=== PATIENT | female | born 1935 | race Caucasian/White ===

== ENCOUNTER 2021-07-18 07:47 | Inpatient (IN) | payer MEDICARE, OTHER ==
[~2021-07-18] VITALS: Ht 152.4 cm; Wt 65.0 kg
--- NOTE | 2021-07-18 08:30 | NUR ---
informed chilo tobias that pt is on warafarin and last seen normal last night.
[2021-07-18 08:43] LABS: BASOPHILS % (AUTO) 0.3 % (0-1); EOSINOPHILS # (AUTO) 0.2 X10'3 (0-0.9); EOSINOPHILS % (AUTO) 2.5 % (0-6); HEMATOCRIT 36.8 % (35.0-45.0); HEMOGLOBIN 12.4 g/dl (12.0-16.0); LYMPHOCYTES # (AUTO) 0.7 X10'3 (1.1-4.8); LYMPHOCYTES % (AUTO) 9.8 % (21-51); MEAN CORPUSCULAR HEMOGLOBIN 30.8 PG (27.0-31.0); MEAN CORPUSCULAR HGB CONC 33.6 g/dL (33.0-36.5); MEAN CORPUSCULAR VOLUME 91.4 FL (78-98); MEAN PLATELET VOLUME 8.4 FL (7.4-10.4); MONOCYTES # (AUTO) 0.4 X10'3 (0-0.9); MONOCYTES % (AUTO) 5.5 % (2-12); NEUTROPHILS % (AUTO) 81.9 % (42-75); PLATELET COUNT 202 X10'3 (140-440); RED BLOOD COUNT 4.02 X10'6 (4.20-5.60); RED CELL DISTRIBUTION WIDTH 14.3 % (11.5-14.5); WHITE BLOOD COUNT 7.3 X10'3 (4.5-11.0)
--- NOTE | 2021-07-18 08:50 | NUR ---
back from ct scan.
[2021-07-18 08:54] LABS: PARTIAL THROMBOPLASTIN TIME 33 SECONDS (22-32)
[2021-07-18 08:56] LABS: ALANINE AMINOTRANSFERASE 22 U/L (12-78); ALBUMIN 3.3 G/DL (3.4-5.0); ALBUMIN/GLOBULIN RATIO 0.8 (1.1-1.5); ALKALINE PHOSPHATASE 114 IU/L (46-116); ANION GAP 8 (8-16); ASPARTATE AMINO TRANSFERASE 17 U/L (10-37); BILIRUBIN,TOTAL 0.8 MG/DL (0.1-1.0); BLOOD UREA NITROGEN 25 MG/DL (7-18); BUN/CREATININE RATIO 27.5 (6.6-38.0); CALCIUM 8.1 MG/DL (8.5-10.1); CHLORIDE 105 MMOL/L (99-107); CREATININE 0.91 MG/DL (0.40-0.90); GLUCOSE 132 MG/DL (70-104); POTASSIUM 3.3 MMOL/L (3.5-5.1); SODIUM 143 MMOL/L (135-145); TOTAL PROTEIN 7.5 G/DL (6.4-8.2); eGFR 59 ML/MIN
--- NOTE | 2021-07-18 09:06 | NUR ---
the fiction and nonfiction prose writer was taking to the pt daughter in law and she was saying she do not know whether pt is having seizure or stroke and while she was providing this information to me i heard pt screaming looked from window saw swetha rn running to pt room and stated that pt is having seizure episode ,pt hr went up to 140-150's and i disconnected the phone ran to md for ativian order .pulled 2 mg ativian from [facility].
[2021-07-18] MEDS ORDERED: LORazepam 2 mg/ml vial IV ONE (09:10)
[2021-07-18] MEDS ORDERED: levetiracetam inj 1,000 MG in normal saline 100ml IV soln 90 ML IV STA (09:15)
--- NOTE | 2021-07-18 09:20 | NUR ---
CALLED PHARMACY FOR JOYCE .
--- NOTE | 2021-07-18 09:27 | NUR ---
pt is stiff with closed fist ,posturing ,pa jatinder notified.pt still tachycardiac hr in 140's with a fib.
--- NOTE | 2021-07-18 09:28 | NUR ---
given ativian 1 mg again 2nd dose after getting verbal orders from chilo tobias.
--- NOTE | 2021-07-18 09:38 | NUR ---
provider has ordered cta of head ,pt hr 117 spo2 98 on 5 l of o2,rr 18 bp 136/105.
[2021-07-18] MEDS ORDERED: iohexol 350MG/ML 100ml bottle IV ONE (09:43)
[2021-07-18] MEDS ORDERED: LORazepam 2 mg/ml vial IV PRN ×2 (09:45→13:30)
--- NOTE | 2021-07-18 09:50 | NUR ---
took pt to ct scan administered 2 mg iv ativian as pt was not holding still for cta .
[2021-07-18 11:32] LABS: % IRON SATURATION 31 % (11-46); IRON 57 UG/DL (49-151); TOTAL IRON BINDING CAPACITY 182 UG/DL (259-388)
[2021-07-18] MEDS ORDERED: magnesium hydroxide 30ml (MOM) UD suspension PO PRN (12:35)
[2021-07-18] MEDS ORDERED: PERFLUTREN PROTEIN-A MICROSPHR (Optison) 0.22 MG/ML 3ML VIAL IV ONE (12:35)
[2021-07-18] MEDS ORDERED: potassium Cl 20 mEq SR tablet PO PRN ×2 (12:35)
[2021-07-18] MEDS ORDERED: magnesium 4gm in 100ml NS 100 ML IV PRN (12:35)
[2021-07-18] MEDS ORDERED: mag hydrox/Alum hydrox/simeth 30ml oral suspension PO PRN (12:35)
[2021-07-18] MEDS ORDERED: magnesium 2GM in 50ml NS 50 ML IV PRN (12:35)
[2021-07-18] MEDS ORDERED: acetaminophen 325mg tablet PO PRN (12:35)
[2021-07-18] MEDS ORDERED: potassium Cl 40MEQ/1/2NS 520ml 520 ML IV PRN ×2 (12:35)
[2021-07-18] MEDS ORDERED: morphine 2 MG/ML inj. syringe IV PRN ×2 (12:35)
[2021-07-18] MEDS ORDERED: ondansetron/PF 4mg/2ml inj IV PRN (12:35)
[2021-07-18] MEDS ORDERED: aspirin 325mg tablet, delayed-release (Ecotrin) PO ONE (12:35)
[2021-07-18] MEDS ORDERED: UNABLE TO OBTAIN PO (13:03)
[2021-07-18] MEDS ORDERED: PHEN100C12 PO (14:48)
[2021-07-18] MEDS ORDERED: WARF2.5T82 PO ×2 (15:03)
[2021-07-18] MEDS ORDERED: enoxaparin 40mg/0.4ml syringe SQ SCH (20:00)
[2021-07-18] MEDS: K and/or MAG REPLACEMENT MC SCH (20:02)
[2021-07-18] MEDS: docusate sod 100mg capsule PO SCH (20:11)
[2021-07-18] MEDS ORDERED: warfarin 1mg tablet PO ONE (21:00)
--- NOTE | 2021-07-18 21:47 | NUR ---
call dr lovett for Cv of trop, no answer, paged
[2021-07-19 01:43] LABS: BASOPHILS % (AUTO) 0.6 % (0-1); EOSINOPHILS # (AUTO) 0.1 X10'3 (0-0.9); EOSINOPHILS % (AUTO) 1.8 % (0-6); HEMATOCRIT 36.6 % (35.0-45.0); HEMOGLOBIN 12.5 g/dl (12.0-16.0); LYMPHOCYTES # (AUTO) 0.9 X10'3 (1.1-4.8); LYMPHOCYTES % (AUTO) 11.9 % (21-51); MEAN CORPUSCULAR HEMOGLOBIN 30.8 PG (27.0-31.0); MEAN CORPUSCULAR HGB CONC 34.2 g/dL (33.0-36.5); MEAN PLATELET VOLUME 8.7 FL (7.4-10.4); MONOCYTES # (AUTO) 0.5 X10'3 (0-0.9); MONOCYTES % (AUTO) 6.4 % (2-12); NEUTROPHILS % (AUTO) 79.3 % (42-75); PLATELET COUNT 192 X10'3 (140-440); RED BLOOD COUNT 4.07 X10'6 (4.20-5.60); RED CELL DISTRIBUTION WIDTH 14.1 % (11.5-14.5); WHITE BLOOD COUNT 7.6 X10'3 (4.5-11.0)
[2021-07-19 02:02] LABS: ALANINE AMINOTRANSFERASE 21 U/L (12-78); ALBUMIN 3.3 G/DL (3.4-5.0); ALBUMIN/GLOBULIN RATIO 0.8 (1.1-1.5); ALKALINE PHOSPHATASE 125 IU/L (46-116); ANION GAP 6 (8-16); ASPARTATE AMINO TRANSFERASE 22 U/L (10-37); BILIRUBIN,TOTAL 1.3 MG/DL (0.1-1.0); BLOOD UREA NITROGEN 19 MG/DL (7-18); BUN/CREATININE RATIO 20.9 (6.6-38.0); CALCIUM 8.5 MG/DL (8.5-10.1); CHLORIDE 108 MMOL/L (99-107); CHOL/HDL RATIO 2.9 (0.00-4.99); CHOLESTEROL 161 MG/DL (0-200); CREATININE 0.91 MG/DL (0.40-0.90); GLUCOSE 91 MG/DL (70-104); HDL CHOLESTEROL 56 MG/DL (35-60); LDL CHOLESTEROL 93 MG/DL (50-100); MAGNESIUM 2.6 MG/DL (1.5-2.4); POTASSIUM 3.7 MMOL/L (3.5-5.1); SODIUM 145 MMOL/L (135-145); TOTAL CARBON DIOXIDE 31.2 MMOL/L (24-32); TOTAL PROTEIN 7.5 G/DL (6.4-8.2); TRIGLYCERIDES 86 MG/DL (20-135); eGFR 59 ML/MIN
[2021-07-19] MEDS: K and/or MAG REPLACEMENT MC SCH (07:09)
[2021-07-19] MEDS ORDERED: phenytoin sod ER 100mg capsule PO SCH ×2 (08:00→21:00)
[2021-07-19] MEDS: docusate sod 100mg capsule PO SCH (10:18)
[2021-07-19 11:00] VITALS: BP 146/78
--- NOTE | 2021-07-19 12:56 | NUR ---
PAGER ID: [phone] MESSAGE: Re: Alina Quintanilla. Room: [facility]. Pt complaining of chronic pain. She takes Berlin at home. Can I put order in for Berlin 5 PRN q4hrs? -[facility] #[id number] -Dr. Phillips paged concerning Pt's pain
[2021-07-19] MEDS ORDERED: HYDROcodone/acetaminophen 5mg/325mg tablet PO PRN (13:05)
[2021-07-19 15:00] VITALS: BP 121/65
[2021-07-19] MEDS ORDERED: PHEN100C12 PO ×2 (15:21)
[2021-07-19] MEDS ORDERED: HYDR-3965 PO ×2 (15:21)
[2021-07-19] MEDS ORDERED: ZOF4I IV (15:24)
[2021-07-19] MEDS ORDERED: HYDR-3964 PO (15:28)
[2021-07-19] MEDS ORDERED: PHEN100C4 PO (15:28)
--- NOTE | 2021-07-19 17:45 | NUR ---
Pt DC'd home with with son and daughter. Pt alert and oriented and vitals WNL upon DC. Per Dr. Phillips; Pt is stable for DC. IC removed, canula intact. Tele-box removed and returned to tele-tech. DC paperwork printed out and gone over with Pt, son and daughter. Allowed them to ask questions concerning DC and then answered them. New prescriptions called into [facility] pharmacy on [address]. Pt, son and daughter stated that they will get a PCP and then get referells for used car sales manager, neurologist and vascular surgeon. Pt's belongings gathered and sent with Pt. Pt's wheelchaired down to [facility] where Pt left in private vehicle with son and daughter.
[2021-07-19] MEDS ORDERED: warfarin 5mg tablet PO ONE (21:00)
== END 2021-07-19 17:45 | disposition home or self-care (01) | DRG 100 ==
LOC: ER 07:48 → ED HOLD 12:44 → PCU 3S 07-19 08:50
PROVIDERS: ADMIT Family Medicine; ATTEND Family Medicine
PROC: B3251ZZ Computerized Tomography (CT Scan) of Bilateral Common Carotid Arteries using Low Osmolar Contrast (ICD-10-PCS; 2021-07-18)
PROC: B32G1ZZ Computerized Tomography (CT Scan) of Bilateral Vertebral Arteries using Low Osmolar Contrast (ICD-10-PCS; 2021-07-18)
PROC: B32R1ZZ Computerized Tomography (CT Scan) of Intracranial Arteries using Low Osmolar Contrast (ICD-10-PCS; 2021-07-18)
PROC: B3281ZZ Computerized Tomography (CT Scan) of Bilateral Internal Carotid Arteries using Low Osmolar Contrast (ICD-10-PCS; 2021-07-18)
PROC: 4A10X4Z Monitoring of Central Nervous Electrical Activity, External Approach (ICD-10-PCS; principal; 2021-07-19)
DX: G40.802 Other epilepsy, not intractable, without status epilepticus (principal); G93.41 Metabolic encephalopathy; I21.A1 Myocardial infarction type 2; I65.21 Occlusion and stenosis of right carotid artery; E78.5 Hyperlipidemia, unspecified; I10 Essential (primary) hypertension; E87.6 Hypokalemia; I77.1 Stricture of artery; G89.29 Other chronic pain; I08.1 Rheumatic disorders of both mitral and tricuspid valves; N28.9 Disorder of kidney and ureter, unspecified; I48.91 Unspecified atrial fibrillation; M79.606 Pain in leg, unspecified; R94.01 Abnormal electroencephalogram [EEG]; Z86.73 Personal history of transient ischemic attack (TIA), and cerebral infarction without residual deficits; Z79.899 Other long term (current) drug therapy; Z79.01 Long term (current) use of anticoagulants
CPT/HCPCS: 36415; 70450; 70496; 70498; 70551; 71045; 80053; 80061; 82948; 83540; 83550; 83735; 84484; 85025; 85610; 85730; 87081; 92508; 92616; 93005; 93306; 95816; 96365; 96366; 96375; 96376; 99285; G0378; J1953; J2060; Q9967

== ENCOUNTER 2021-07-27 22:11 | Emergency (ER) | payer MEDICARE ==
[~2021-07-27] VITALS: Ht 160 cm; Wt 59.1 kg
[~2021-07-27 22:11] MED LIST: HYDR-3964 PO; PHEN100C4 PO; WARF2.5T82 PO; ZOF4I IV
[2021-07-28] MEDS ORDERED: normal saline 1000ML IV soln IVB ONE
[2021-07-28 00:41] LABS: HEMOGLOBIN 12.5 g/dl (12.0-16.0); WHITE BLOOD COUNT 7.3 X10'3 (4.5-11.0)
[2021-07-28 00:42] LABS: BASOPHILS % (AUTO) 0.3 % (0-1); EOSINOPHILS # (AUTO) 0.2 X10'3 (0-0.9); EOSINOPHILS % (AUTO) 3.1 % (0-6); HEMATOCRIT 36.2 % (35.0-45.0); LYMPHOCYTES # (AUTO) 0.8 X10'3 (1.1-4.8); MEAN CORPUSCULAR HEMOGLOBIN 32.5 PG (27.0-31.0); MEAN CORPUSCULAR HGB CONC 34.6 g/dL (33.0-36.5); MEAN CORPUSCULAR VOLUME 93.9 FL (78-98); MEAN PLATELET VOLUME 8.1 FL (7.4-10.4); MONOCYTES # (AUTO) 0.5 X10'3 (0-0.9); MONOCYTES % (AUTO) 6.7 % (2-12); NEUTROPHILS # (AUTO) 5.7 X10'3 (1.8-7.7); NEUTROPHILS % (AUTO) 78.9 % (42-75); PLATELET COUNT 258 X10'3 (140-440); RED BLOOD COUNT 3.86 X10'6 (4.20-5.60); RED CELL DISTRIBUTION WIDTH 14.4 % (11.5-14.5)
[2021-07-28] MEDS ORDERED: HYDROcodone/acetaminophen 5mg/325mg tablet PO ONE (00:45)
[2021-07-28 01:04] LABS: CLARITY,URINE SLIGHTLY CLOUDY (Clear); COLOR,URINE YELLOW (Yellow); GLUCOSE, URINE NEGATIVE (Neg); KETONES,URINE NEGATIVE (Neg); PROTEIN,URINE NEGATIVE (Neg); UA COLLECTION TYPE CLN CATCH MIDSTREAM
[2021-07-28 01:04] LABS: ALANINE AMINOTRANSFERASE 23 U/L (12-78); ALBUMIN 3.7 G/DL (3.4-5.0); ALBUMIN/GLOBULIN RATIO 0.9 (1.1-1.5); ALKALINE PHOSPHATASE 141 IU/L (46-116); ANION GAP 8 (8-16); ASPARTATE AMINO TRANSFERASE 19 U/L (10-37); BILIRUBIN,TOTAL 0.3 MG/DL (0.1-1.0); BLOOD UREA NITROGEN 23 MG/DL (7-18); BUN/CREATININE RATIO 24.2 (6.6-38.0); CALCIUM 8.1 MG/DL (8.5-10.1); CHLORIDE 107 MMOL/L (99-107); CREATININE 0.95 MG/DL (0.40-0.90); GLUCOSE 103 MG/DL (70-104); POTASSIUM 3.9 MMOL/L (3.5-5.1); SODIUM 144 MMOL/L (135-145); TOTAL CARBON DIOXIDE 29.3 MMOL/L (24-32); eGFR 56 ML/MIN
[2021-07-28 01:05] LABS: LEUKOCYTE ESTERASE ,URINE MODERATE (Neg); NITRITES, URINE NEGATIVE (Neg); OCCULT BLOOD,URINE TRACE-LYSED (Neg); UROBILINOGEN,URINE 0.2 E.U/dL (0.2-1.0)
[2021-07-28 01:07] LABS: PHENYTOIN (DILANTIN) 16.6 UG/ML (10.0-20.0)
[2021-07-28 01:12] LABS: WBC,URINE 30-50 /HPF (0-4)
[2021-07-28 01:13] LABS: BACTERIA,URINE 4+ /HPF (Neg); MUCUS STRANDS NONE SEEN /LPF (Neg); RBC,URINE 0-2 /HPF (0-2); SQUAMOUS EPITHELIAL CELL,UR FEW /LPF (FEW)
[2021-07-28 01:16] VITALS: BP 195/104
[2021-07-28] MEDS ORDERED: CefTRIAXone/D5W-Rocephin 1gm 50 ML IV ONE (01:50)
[2021-07-28] MEDS ORDERED: CEPH-585 PO ×3 (04:29→04:56)
== END 2021-07-28 05:40 | disposition home or self-care (01) ==
LOC: ER 22:12
DX: N39.0 Urinary tract infection, site not specified (principal); R53.1 Weakness; R47.81 Slurred speech; R53.83 Other fatigue; I48.91 Unspecified atrial fibrillation; I12.9 Hypertensive chronic kidney disease with stage 1 through stage 4 chronic kidney disease, or unspecified chronic kidney disease; N18.9 Chronic kidney disease, unspecified; Z86.73 Personal history of transient ischemic attack (TIA), and cerebral infarction without residual deficits; Z86.69 Personal history of other diseases of the nervous system and sense organs; Z88.5 Allergy status to narcotic agent; Z79.2 Long term (current) use of antibiotics; Z79.899 Other long term (current) drug therapy
CPT/HCPCS: 36415; 71045; 80053; 80185; 81001; 84484; 85025; 87077; 87088; 87186; 93005; 96365; 99285; J0696; J7030

== ENCOUNTER 2022-02-22 09:00 | Emergency (ER) | payer MEDICARE ==
[~2022-02-22] VITALS: Ht 152.4 cm; Wt 61.4 kg
[~2022-02-22 09:00] MED LIST changes: +CEPH-585 PO
[2022-02-22] MEDS ORDERED: HYDROcodone/acetaminophen 10/325mg tab PO ONE (09:20)
[2022-02-22 10:53] LABS: BASOPHILS % (AUTO) 0.6 % (0-1); EOSINOPHILS # (AUTO) 0.3 X10'3 (0-0.9); EOSINOPHILS % (AUTO) 5.3 % (0-6); HEMATOCRIT 33.5 % (35.0-45.0); HEMOGLOBIN 10.8 g/dl (12.0-16.0); LYMPHOCYTES # (AUTO) 0.7 X10'3 (1.1-4.8); LYMPHOCYTES % (AUTO) 12.2 % (21-51); MEAN CORPUSCULAR HEMOGLOBIN 29.2 PG (27.0-31.0); MEAN CORPUSCULAR HGB CONC 32.1 g/dL (33.0-36.5); MEAN CORPUSCULAR VOLUME 91.1 FL (78-98); MEAN PLATELET VOLUME 8.5 FL (7.4-10.4); MONOCYTES # (AUTO) 0.3 X10'3 (0-0.9); MONOCYTES % (AUTO) 5.5 % (2-12); NEUTROPHILS # (AUTO) 4.2 X10'3 (1.8-7.7); NEUTROPHILS % (AUTO) 76.4 % (42-75); PLATELET COUNT 217 X10'3 (140-440); RED BLOOD COUNT 3.68 X10'6 (4.20-5.60); RED CELL DISTRIBUTION WIDTH 17.4 % (11.5-14.5); WHITE BLOOD COUNT 5.5 X10'3 (4.5-11.0)
[2022-02-22 11:01] LABS: ALANINE AMINOTRANSFERASE 12 U/L (12-78); ALBUMIN 3.2 G/DL (3.4-5.0); ALBUMIN/GLOBULIN RATIO 0.7 (1.1-1.5); ALKALINE PHOSPHATASE 120 IU/L (46-116); ANION GAP 6 (8-16); ASPARTATE AMINO TRANSFERASE 21 U/L (10-37); BILIRUBIN,TOTAL 0.7 MG/DL (0.1-1.0); BLOOD UREA NITROGEN 26 MG/DL (7-18); BUN/CREATININE RATIO 19.7 (6.6-38.0); CALCIUM 8.8 MG/DL (8.5-10.1); CHLORIDE 106 MMOL/L (99-107); CREATININE 1.32 MG/DL (0.40-0.90); GLUCOSE 122 MG/DL (70-104); POTASSIUM 3.8 MMOL/L (3.5-5.1); SODIUM 143 MMOL/L (135-145); TOTAL CARBON DIOXIDE 31.1 MMOL/L (24-32); TOTAL PROTEIN 7.6 G/DL (6.4-8.2); eGFR 38 ML/MIN
[2022-02-22 11:17] VITALS: BP 168/71
[2022-02-22] MEDS ORDERED: GABA300C PO (11:55)
[2022-02-22] MEDS ORDERED: CEPH-585 PO (11:55)
[2022-02-22 12:53] LABS: CLARITY,URINE SLIGHTLY CLOUDY (Clear); COLOR,URINE YELLOW (Yellow); GLUCOSE, URINE NEGATIVE (Neg); KETONES,URINE NEGATIVE (Neg); LEUKOCYTE ESTERASE ,URINE TRACE (Neg); NITRITES, URINE NEGATIVE (Neg); OCCULT BLOOD,URINE NEGATIVE (Neg); PROTEIN,URINE NEGATIVE (Neg); UA COLLECTION TYPE STRAIGHT CATH
[2022-02-22 12:58] LABS: SQUAMOUS EPITHELIAL CELL,UR FEW /LPF (FEW)
[2022-02-22 12:59] LABS: BACTERIA,URINE 3+ /HPF (Neg)
[2022-02-22 13:00] LABS: RBC,URINE NONE SEEN /HPF (0-2); WBC CLUMPS,URINE MODERATE /HPF (NEGATIVE)
[2022-02-22 13:01] LABS: HYALINE CASTS 0-3 /LPF (NEGATIVE)
== END 2022-02-22 14:04 | disposition home or self-care (01) ==
LOC: ER 09:01
DX: K40.90 Unilateral inguinal hernia, without obstruction or gangrene, not specified as recurrent (principal); R10.32 Left lower quadrant pain; L02.416 Cutaneous abscess of left lower limb; N39.0 Urinary tract infection, site not specified; I12.9 Hypertensive chronic kidney disease with stage 1 through stage 4 chronic kidney disease, or unspecified chronic kidney disease; N18.32 Chronic kidney disease, stage 3b; I48.91 Unspecified atrial fibrillation; Z86.73 Personal history of transient ischemic attack (TIA), and cerebral infarction without residual deficits; Z88.8 Allergy status to other drugs, medicaments and biological substances; Z79.01 Long term (current) use of anticoagulants; Z79.899 Other long term (current) drug therapy; Z79.2 Long term (current) use of antibiotics; W19.XXXA Unspecified fall, initial encounter; Y93.89 Activity, other specified; Y92.89 Other specified places as the place of occurrence of the external cause; Y99.8 Other external cause status
CPT/HCPCS: 36415; 70450; 72100; 72131; 72170; 72192; 80053; 81001; 85025; 85610; 87077; 87088; 87186; 93005; 99285; A4353

== ENCOUNTER 2022-03-12 15:31 | Inpatient (IN) | payer MEDICARE ==
[~2022-03-12] VITALS: Ht 157.5 cm; Wt 60.0 kg
[~2022-03-12 15:31] MED LIST changes: +GABA300C PO
--- NOTE | 2022-03-12 15:42 | NUR ---
TACHO Amaral (FAMILY FRIEND) [phone]
[2022-03-12 16:09] LABS: BASOPHILS % (AUTO) 0.6 % (0-1); EOSINOPHILS # (AUTO) 0.4 X10'3 (0-0.9); EOSINOPHILS % (AUTO) 9.3 % (0-6); HEMATOCRIT 28.8 % (35.0-45.0); HEMOGLOBIN 9.3 g/dl (12.0-16.0); LYMPHOCYTES # (AUTO) 0.7 X10'3 (1.1-4.8); LYMPHOCYTES % (AUTO) 15.5 % (21-51); MEAN CORPUSCULAR HEMOGLOBIN 29.7 PG (27.0-31.0); MEAN CORPUSCULAR HGB CONC 32.4 g/dL (33.0-36.5); MEAN CORPUSCULAR VOLUME 91.7 FL (78-98); MEAN PLATELET VOLUME 7.4 FL (7.4-10.4); MONOCYTES # (AUTO) 0.4 X10'3 (0-0.9); MONOCYTES % (AUTO) 9.6 % (2-12); NEUTROPHILS # (AUTO) 2.9 X10'3 (1.8-7.7); PLATELET COUNT 264 X10'3 (140-440); RED BLOOD COUNT 3.15 X10'6 (4.20-5.60); RED CELL DISTRIBUTION WIDTH 20.2 % (11.5-14.5); WHITE BLOOD COUNT 4.5 X10'3 (4.5-11.0)
[2022-03-12 16:19] LABS: ALANINE AMINOTRANSFERASE 15 U/L (12-78); ALBUMIN 3.1 G/DL (3.4-5.0); ALBUMIN/GLOBULIN RATIO 0.7 (1.1-1.5); ALKALINE PHOSPHATASE 112 IU/L (46-116); ANION GAP 6 (8-16); ASPARTATE AMINO TRANSFERASE 24 U/L (10-37); BILIRUBIN,TOTAL 0.3 MG/DL (0.1-1.0); BLOOD UREA NITROGEN 45 MG/DL (7-18); CALCIUM 8.3 MG/DL (8.5-10.1); CHLORIDE 105 MMOL/L (99-107); GLUCOSE 105 MG/DL (70-104); POTASSIUM 4.7 MMOL/L (3.5-5.1); SODIUM 140 MMOL/L (135-145); TOTAL CARBON DIOXIDE 29.2 MMOL/L (24-32); TOTAL PROTEIN 7.3 G/DL (6.4-8.2); eGFR 18 ML/MIN
[2022-03-12 16:22] LABS: MAGNESIUM 2.6 MG/DL (1.5-2.4)
--- NOTE | 2022-03-12 17:02 | NUR ---
WERNER TORIBIO (SON): [phone] 2ND: [phone]
[2022-03-12 17:14] LABS: CLARITY,URINE CLEAR (Clear); COLOR,URINE YELLOW (Yellow); GLUCOSE, URINE NEGATIVE (Neg); KETONES,URINE NEGATIVE (Neg); LEUKOCYTE ESTERASE ,URINE NEGATIVE (Neg); NITRITES, URINE NEGATIVE (Neg); OCCULT BLOOD,URINE NEGATIVE (Neg); PH,URINE 5.5 (4.8-8.0); PROTEIN,URINE NEGATIVE (Neg); UROBILINOGEN,URINE 0.2 E.U/dL (0.2-1.0)
[2022-03-12 17:15] LABS: UA COLLECTION TYPE STRAIGHT CATH
[2022-03-12] MEDS ORDERED: normal saline 1000ML IV soln IVB ONE (17:35)
[2022-03-12 18:15] LABS: ANISOCYTOSIS 3+; ELLIPTOCYTES 1+; PLATELET ESTIMATE NORMAL; POIKILOCYTOSIS 1+
[2022-03-12] MEDS ORDERED: piperacillin/tazo 3.375gm/50ml 50 ML IV ONE (18:55)
[2022-03-12] MEDS ORDERED: HYDROcodone/acetaminophen 10/325mg tab PO ONE (19:00)
[2022-03-12] MEDS ORDERED: ipratropium/albuterol 3ml nebule NEB ONE (19:20)
[2022-03-12] MEDS ORDERED: methylPREDNISolone sod succ 125mg/2ml vial IV ONE (19:20)
[2022-03-12] MEDS ORDERED: ondansetron/PF 4mg/2ml inj IV PRN (22:10)
[2022-03-12] MEDS ORDERED: magnesium hydroxide 30ml (MOM) UD suspension PO PRN (22:10)
[2022-03-12] MEDS ORDERED: acetaminophen 325mg tablet PO PRN ×2 (22:10)
[2022-03-12] MEDS ORDERED: diphenhydrAMINE 50 mg/ml inj IV PRN (22:10)
[2022-03-12] MEDS ORDERED: ondansetron 4mg rapidly disintigrating tab PO PRN (22:10)
[2022-03-12] MEDS ORDERED: acetaminophen 650mg rectal suppository RC PRN (22:10)
[2022-03-12] MEDS ORDERED: morphine 2 MG/ML inj. syringe IV PRN (22:10)
[2022-03-12] MEDS ORDERED: mag hydrox/Alum hydrox/simeth 30ml oral suspension PO PRN (22:10)
[2022-03-12] MEDS ORDERED: bisacodyl 10mg suppository rectal RC PRN (22:10)
[2022-03-12] MEDS ORDERED: diphenhydrAMINE 25mg capsule PO PRN (22:10)
[2022-03-12] MEDS ORDERED: metoclopramide 5 mg/ml inj IV PRN (22:10)
[2022-03-12] MEDS ORDERED: ipratropium/albuterol 3ml nebule NEB PRN (22:15)
[2022-03-12 22:28] LABS: HEMOGLOBIN A1C 6.4 % (4.5-6.2)
[2022-03-12 23:02] LABS: MAGNESIUM 2.8 MG/DL (1.5-2.4); PHOSPHORUS 5.1 MG/DL (2.3-4.5)
[2022-03-12] MEDS: normal saline 1000ml 1,000 ML IV SCH (23:02)
[2022-03-12 23:14] LABS: PHENYTOIN (DILANTIN) < 0.5 UG/ML (10.0-20.0)
[2022-03-13] MEDS: HYDROchlorothiazide 25mg tablet PO SCH ×2 (00:39→08:34)
[2022-03-13] MEDS: morphine 2 MG/ML inj. syringe IV PRN ×3 (02:48→22:39)
[2022-03-13] MEDS: HYDROcodone/acetaminophen 5mg/325mg tablet PO PRN ×3 (05:08→20:38)
[2022-03-13 07:49] LABS: BASOPHILS % (AUTO) 0.1 % (0-1); EOSINOPHILS % (AUTO) 0.1 % (0-6); HEMATOCRIT 27.9 % (35.0-45.0); HEMOGLOBIN 9.2 g/dl (12.0-16.0); LYMPHOCYTES # (AUTO) 0.3 X10'3 (1.1-4.8); MEAN CORPUSCULAR HEMOGLOBIN 29.7 PG (27.0-31.0); MEAN CORPUSCULAR HGB CONC 32.9 g/dL (33.0-36.5); MEAN CORPUSCULAR VOLUME 90.2 FL (78-98); MEAN PLATELET VOLUME 7.5 FL (7.4-10.4); MONOCYTES % (AUTO) 1.1 % (2-12); NEUTROPHILS # (AUTO) 3.1 X10'3 (1.8-7.7); NEUTROPHILS % (AUTO) 89.7 % (42-75); PLATELET COUNT 240 X10'3 (140-440); RED BLOOD COUNT 3.09 X10'6 (4.20-5.60); RED CELL DISTRIBUTION WIDTH 19.9 % (11.5-14.5); WHITE BLOOD COUNT 3.4 X10'3 (4.5-11.0)
[2022-03-13] MEDS: docusate sod 100mg capsule PO SCH ×2 (08:00→20:36)
[2022-03-13 08:08] LABS: ALANINE AMINOTRANSFERASE 20 U/L (12-78); ALBUMIN 3.1 G/DL (3.4-5.0); ALBUMIN/GLOBULIN RATIO 0.7 (1.1-1.5); ALKALINE PHOSPHATASE 117 IU/L (46-116); ANION GAP 7 (8-16); ASPARTATE AMINO TRANSFERASE 24 U/L (10-37); BILIRUBIN,TOTAL 0.4 MG/DL (0.1-1.0); BLOOD UREA NITROGEN 41 MG/DL (7-18); BUN/CREATININE RATIO 20.6 (6.6-38.0); CALCIUM 8.4 MG/DL (8.5-10.1); CHLORIDE 107 MMOL/L (99-107); CHOL/HDL RATIO 2.9 (0.00-4.99); CHOLESTEROL 99 MG/DL (0-200); CREATININE 1.99 MG/DL (0.40-0.90); GLUCOSE 170 MG/DL (70-104); HDL CHOLESTEROL 34 MG/DL (35-60); LDL CHOLESTEROL 50 MG/DL (50-100); POTASSIUM 4.7 MMOL/L (3.5-5.1); SODIUM 139 MMOL/L (135-145); TOTAL CARBON DIOXIDE 24.9 MMOL/L (24-32); TOTAL PROTEIN 7.4 G/DL (6.4-8.2); TRIGLYCERIDES 60 MG/DL (20-135); eGFR 24 ML/MIN
[2022-03-13] MEDS: pantoprazole 40mg Tablet.DR PO SCH (08:34)
[2022-03-13] MEDS: furosemide 10 MG/1 ML 10ml inj IV SCH ×2 (08:35→20:46)
[2022-03-13] MEDS: methylPREDNISolone sod succ 125mg/2ml vial IV SCH ×2 (08:36→20:46)
--- NOTE | 2022-03-13 11:17 | NUR ---
pt up to bsc with moderate assistance. small bm noted.
--- NOTE | 2022-03-13 11:59 | NUR ---
dr. vidal at bedside.
--- NOTE | 2022-03-13 12:17 | NUR ---
lunch tray provided.
[2022-03-13] MEDS ORDERED: LORazepam 2 mg/ml vial IV PRN (13:20)
--- NOTE | 2022-03-13 16:39 | NUR ---
ADULT BRIEF CHANGED, HYGIENE PROVIDED WITH LINEN CHANGE AND PURE WICK PLACED FOR PATIENT CONVENIENCE AND COMFORT. DOOR TO DOOR LEAD GENERATION AT BEDSIDE.
[2022-03-13] MEDS: LORazepam 0.5 MG tablet PO PRN (20:38)
[2022-03-13 22:00] VITALS: BP 167/93
[2022-03-14] VITALS (8 sets, daily range): BP systolic 119–163; BP diastolic 67–87
[2022-03-14 06:10] LABS: BASOPHILS % (AUTO) 0 % (0-1); EOSINOPHILS % (AUTO) 0 % (0-6); HEMATOCRIT 27.3 % (35.0-45.0); HEMOGLOBIN 9.3 g/dl (12.0-16.0); LYMPHOCYTES # (AUTO) 0.3 X10'3 (1.1-4.8); LYMPHOCYTES % (AUTO) 4.2 % (21-51); MEAN CORPUSCULAR HEMOGLOBIN 31.5 PG (27.0-31.0); MEAN CORPUSCULAR HGB CONC 33.9 g/dL (33.0-36.5); MEAN CORPUSCULAR VOLUME 92.9 FL (78-98); MEAN PLATELET VOLUME 7.3 FL (7.4-10.4); MONOCYTES # (AUTO) 0.2 X10'3 (0-0.9); MONOCYTES % (AUTO) 2.3 % (2-12); NEUTROPHILS % (AUTO) 93.5 % (42-75); PLATELET COUNT 229 X10'3 (140-440); RED BLOOD COUNT 2.94 X10'6 (4.20-5.60); RED CELL DISTRIBUTION WIDTH 20.4 % (11.5-14.5); WHITE BLOOD COUNT 7.5 X10'3 (4.5-11.0)
[2022-03-14 06:18] LABS: ALANINE AMINOTRANSFERASE 24 U/L (12-78); ALBUMIN 3.6 G/DL (3.4-5.0); ALBUMIN/GLOBULIN RATIO 0.8 (1.1-1.5); ALKALINE PHOSPHATASE 116 IU/L (46-116); ANION GAP 6 (8-16); ASPARTATE AMINO TRANSFERASE 23 U/L (10-37); BILIRUBIN,TOTAL 0.5 MG/DL (0.1-1.0); BLOOD UREA NITROGEN 42 MG/DL (7-18); BUN/CREATININE RATIO 23.1 (6.6-38.0); CALCIUM 8.6 MG/DL (8.5-10.1); CHLORIDE 104 MMOL/L (99-107); CREATININE 1.82 MG/DL (0.40-0.90); GLUCOSE 144 MG/DL (70-104); POTASSIUM 4.6 MMOL/L (3.5-5.1); SODIUM 140 MMOL/L (135-145); TOTAL CARBON DIOXIDE 29.6 MMOL/L (24-32); TOTAL PROTEIN 7.9 G/DL (6.4-8.2); eGFR 26 ML/MIN
[2022-03-14] MEDS: morphine 2 MG/ML inj. syringe IV PRN ×4 (07:07→23:39)
[2022-03-14] MEDS: furosemide 10 MG/1 ML 10ml inj IV SCH ×2 (07:08→19:45)
[2022-03-14] MEDS: methylPREDNISolone sod succ 125mg/2ml vial IV SCH ×2 (07:10→19:45)
[2022-03-14] MEDS: HYDROchlorothiazide 25mg tablet PO SCH (07:11)
[2022-03-14] MEDS: pantoprazole 40mg Tablet.DR PO SCH (07:11)
[2022-03-14] MEDS: docusate sod 100mg capsule PO SCH ×2 (07:11→19:45)
[2022-03-14] MEDS: phenytoin sod ER 100mg capsule PO SCH (07:11)
[2022-03-14] MEDS ORDERED: levoFLOXACIN-Levaquin 750MG/D5 150 ML IV SCH (08:00)
[2022-03-14] MEDS: HYDROcodone/acetaminophen 5mg/325mg tablet PO PRN ×3 (08:40→19:48)
[2022-03-14] MEDS ORDERED: phytonadione inj. 5 MG in normal saline 100ml IV soln 100 ML IV ONE (09:40)
[2022-03-14] MEDS: LORazepam 0.5 MG tablet PO PRN (10:38)
--- NOTE | 2022-03-14 15:59 | NUR ---
PRESSURE ULCER EDUCATION: DEFINITION: A pressure ulcer is an area of skin that breaks down when you stay in one position too long. The constant pressure against the skin reduces the blood flow to that area and the affected tissue dies. CAUSES: "Being bedridden or in a wheelchair "Fragile skin "Having a chronic condition, such as diabetes or vascular disease "Inability to move certain parts of your body without assistance "Older age "Incontinence of urine or stool SYMPTOMS: "A reddened area that DOES NOT turn white when pressed on - this can be the beginning of a pressure ulcer "A blister, deep sore or a crater - these can be advanced pressure ulcers FIRST AID: "Relieve the pressure on this area "Keep the area clean and dry "Call your primary doctor if you see any of the above symptoms "DO NOT massage the area "DO NOT use a donut shaped or ring shaped pillow- these actually interfere with the blood flow and cause complications PREVENTION: "Check for pressure ulcers everyday "Change position at least every two hours to relieve pressure "Use items that help relieve pressure- pillows, sheepskin, foam padding, and powders. "Keep skin clean and dry "Eat healthy well balanced meals "Exercise daily IF YOU SEE ANY OF THESE SYMPTOMS WHILE IN THE HOSPITAL - TELL YOUR NURSE IMMEDIATELY. IF YOU SEE ANY OF THESE SYMPTOMS WHILE AT HOME OR HAVE ANY QUESTIONS OR CONCERNS ABOUT PRESSURE ULCERS - CALL YOUR PRIMARY DOCTOR IMMEDIATELY. Addendum: 03/14/22 at 1600 by Soraida Johnson LVN Amended: Links added.
[2022-03-14] MEDS ORDERED: LOSA100T57 PO (17:29)
[2022-03-14] MEDS ORDERED: OMEP20CA16 PO (17:29)
[2022-03-14] MEDS ORDERED: POTA10TA PO (17:29)
[2022-03-14] MEDS ORDERED: LEVE500T PO (17:29)
[2022-03-14] MEDS ORDERED: METO50TA16 PO (17:29)
[2022-03-14] MEDS ORDERED: ACET-890 PO (17:29)
[2022-03-14] MEDS ORDERED: ATOR40TA72 PO (17:29)
[2022-03-14] MEDS ORDERED: FURO40TA4 PO (17:31)
[2022-03-14] MEDS ORDERED: acetaminophen 325mg tablet PO PRN (17:55)
--- NOTE | 2022-03-14 18:30 | NUR ---
Patient in room PCU 3026. I have received report from Loretta ZEPDEA and had the opportunity to ask questions and assume patient care.
--- NOTE | 2022-03-14 18:51 | NUR ---
3012C Brian. Admit 03/14 bilat pne and COPD exac. EKG completed. do you want to see it? Litzy ZEPEDA PCU 0490
[2022-03-14] MEDS: metoprolol tartrate 50mg tablet PO SCH (19:48)
[2022-03-14] MEDS: levetiracetam 250mg tablet PO SCH (19:48)
[2022-03-14] MEDS ORDERED: pantoprazole 40mg Tablet.DR PO SCH (20:00)
[2022-03-15] VITALS (7 sets, daily range): BP systolic 143–174; BP diastolic 73–98
[2022-03-15] MEDS: normal saline 1000ml 1,000 ML IV SCH (01:42)
[2022-03-15] MEDS: LORazepam 0.5 MG tablet PO PRN ×2 (01:42→13:18)
[2022-03-15] MEDS: HYDROcodone/acetaminophen 5mg/325mg tablet PO PRN ×3 (03:21→16:41)
--- NOTE | 2022-03-15 06:03 | NUR ---
Problems reprioritized. Patient report given, questions answered & plan of care reviewed with Loretta ZEPEDA.
[2022-03-15 06:20] LABS: BASOPHILS % (AUTO) 0 % (0-1); EOSINOPHILS % (AUTO) 0 % (0-6); HEMATOCRIT 26.5 % (35.0-45.0); HEMOGLOBIN 8.7 g/dl (12.0-16.0); LYMPHOCYTES # (AUTO) 0.2 X10'3 (1.1-4.8); LYMPHOCYTES % (AUTO) 5.1 % (21-51); MEAN CORPUSCULAR HEMOGLOBIN 30.4 PG (27.0-31.0); MEAN PLATELET VOLUME 7.5 FL (7.4-10.4); MONOCYTES # (AUTO) 0.2 X10'3 (0-0.9); MONOCYTES % (AUTO) 4.1 % (2-12); NEUTROPHILS # (AUTO) 4.4 X10'3 (1.8-7.7); NEUTROPHILS % (AUTO) 90.8 % (42-75); PLATELET COUNT 186 X10'3 (140-440); RED BLOOD COUNT 2.88 X10'6 (4.20-5.60); RED CELL DISTRIBUTION WIDTH 20.2 % (11.5-14.5); WHITE BLOOD COUNT 4.8 X10'3 (4.5-11.0)
[2022-03-15 06:31] LABS: APTT 34 SECONDS (22-32)
[2022-03-15 06:46] LABS: ALANINE AMINOTRANSFERASE 20 U/L (12-78); ALBUMIN 3.3 G/DL (3.4-5.0); ALBUMIN/GLOBULIN RATIO 0.8 (1.1-1.5); ALKALINE PHOSPHATASE 99 IU/L (46-116); ANION GAP 7 (8-16); ASPARTATE AMINO TRANSFERASE 21 U/L (10-37); BILIRUBIN,TOTAL 0.6 MG/DL (0.1-1.0); BLOOD UREA NITROGEN 42 MG/DL (7-18); BUN/CREATININE RATIO 28.6 (6.6-38.0); CALCIUM 8.3 MG/DL (8.5-10.1); CHLORIDE 102 MMOL/L (99-107); CREATININE 1.47 MG/DL (0.40-0.90); GLUCOSE 141 MG/DL (70-104); POTASSIUM 4.4 MMOL/L (3.5-5.1); SODIUM 140 MMOL/L (135-145); TOTAL CARBON DIOXIDE 31.3 MMOL/L (24-32); TOTAL PROTEIN 7.4 G/DL (6.4-8.2); eGFR 34 ML/MIN
[2022-03-15 07:47] LABS: ANISOCYTOSIS 3+; ELLIPTOCYTES 2+; HYPOCHROMASIA 1+; PLATELET ESTIMATE NORMAL; POLYCHROMASIA FEW; ROULEAUX 1+
[2022-03-15 07:48] LABS: SCHISTOCYTES FEW
[2022-03-15] MEDS: docusate sod 100mg capsule PO SCH ×2 (07:52→20:25)
[2022-03-15] MEDS: metoprolol tartrate 50mg tablet PO SCH ×2 (07:53→20:27)
[2022-03-15] MEDS: pantoprazole 40mg Tablet.DR PO SCH (07:53)
[2022-03-15] MEDS: levetiracetam 250mg tablet PO SCH ×2 (07:54→20:35)
[2022-03-15] MEDS: phenytoin sod ER 100mg capsule PO SCH (07:54)
[2022-03-15] MEDS: HYDROchlorothiazide 25mg tablet PO SCH (07:54)
[2022-03-15] MEDS: losartan 50mg tablet PO SCH (07:55)
[2022-03-15] MEDS: atorvastatin 20mg tablet PO SCH (07:55)
[2022-03-15] MEDS: methylPREDNISolone sod succ 125mg/2ml vial IV SCH ×2 (07:56→20:31)
[2022-03-15] MEDS: furosemide 10 MG/1 ML 10ml inj IV SCH ×2 (07:59→20:32)
--- NOTE | 2022-03-15 10:00 | NUR ---
O2 Sat at rest on room air:_83__% If below 89%: Recovery O2 Sat at rest on __2_LPM:__92% via NC (mask/nasal cannula, etc..) No further documentation is necessary.
[2022-03-15] MEDS ORDERED: PRED20TA PO (10:15)
[2022-03-15] MEDS ORDERED: APIX5TAB3 PO ×3 (10:15→14:26)
[2022-03-15] MEDS: morphine 2 MG/ML inj. syringe IV PRN (11:29)
--- NOTE | 2022-03-15 12:14 | NUR ---
Received call from Sonu, son of pt. They received the eliquis prescription at the pharmacy but it is costing a fortune since its out of network for them. They want script to be faxed to pts primary in [facility] and they will drive to [facility]. They will give me info when they come to visit this afternoon.
[2022-03-15] MEDS: temazepam 15mg capsule PO PRN (20:25)
[2022-03-16 02:00] VITALS: BP 167/88
[2022-03-16] MEDS: LORazepam 0.5 MG tablet PO PRN ×2 (03:23→22:47)
[2022-03-16] MEDS: HYDROcodone/acetaminophen 5mg/325mg tablet PO PRN ×3 (03:24→22:47)
[2022-03-16 06:00] VITALS: BP 168/94
[2022-03-16 06:11] LABS: ALANINE AMINOTRANSFERASE 21 U/L (12-78); ALBUMIN 3.6 G/DL (3.4-5.0); ALBUMIN/GLOBULIN RATIO 0.8 (1.1-1.5); ALKALINE PHOSPHATASE 105 IU/L (46-116); ANION GAP 8 (8-16); ASPARTATE AMINO TRANSFERASE 21 U/L (10-37); BLOOD UREA NITROGEN 40 MG/DL (7-18); BUN/CREATININE RATIO 31.7 (6.6-38.0); CALCIUM 8.6 MG/DL (8.5-10.1); CHLORIDE 100 MMOL/L (99-107); CREATININE 1.26 MG/DL (0.40-0.90); GLUCOSE 148 MG/DL (70-104); POTASSIUM 3.6 MMOL/L (3.5-5.1); SODIUM 141 MMOL/L (135-145); TOTAL PROTEIN 7.9 G/DL (6.4-8.2); eGFR 40 ML/MIN
[2022-03-16 07:11] LABS: BASOPHILS % (AUTO) 0 % (0-1); EOSINOPHILS % (AUTO) 0 % (0-6); HEMOGLOBIN 10.5 g/dl (12.0-16.0); LYMPHOCYTES # (AUTO) 0.4 X10'3 (1.1-4.8); LYMPHOCYTES % (AUTO) 6.9 % (21-51); MEAN CORPUSCULAR HEMOGLOBIN 29.9 PG (27.0-31.0); MEAN CORPUSCULAR HGB CONC 32.9 g/dL (33.0-36.5); MEAN PLATELET VOLUME 7.7 FL (7.4-10.4); MONOCYTES # (AUTO) 0.5 X10'3 (0-0.9); MONOCYTES % (AUTO) 7.9 % (2-12); NEUTROPHILS # (AUTO) 5.5 X10'3 (1.8-7.7); NEUTROPHILS % (AUTO) 85.2 % (42-75); PLATELET COUNT 219 X10'3 (140-440); RED BLOOD COUNT 3.51 X10'6 (4.20-5.60); RED CELL DISTRIBUTION WIDTH 19.9 % (11.5-14.5); WHITE BLOOD COUNT 6.5 X10'3 (4.5-11.0)
[2022-03-16] MEDS: levetiracetam 250mg tablet PO SCH ×2 (07:49→20:13)
[2022-03-16] MEDS: docusate sod 100mg capsule PO SCH ×2 (07:49→20:13)
[2022-03-16] MEDS: losartan 50mg tablet PO SCH (07:49)
[2022-03-16] MEDS: atorvastatin 20mg tablet PO SCH (07:49)
[2022-03-16] MEDS: pantoprazole 40mg Tablet.DR PO SCH (07:50)
[2022-03-16] MEDS: metoprolol tartrate 50mg tablet PO SCH ×2 (07:50→20:14)
[2022-03-16] MEDS: HYDROchlorothiazide 25mg tablet PO SCH (07:50)
[2022-03-16] MEDS: methylPREDNISolone sod succ 125mg/2ml vial IV SCH ×2 (07:51→20:13)
[2022-03-16] MEDS: furosemide 10 MG/1 ML 10ml inj IV SCH (07:52)
[2022-03-16] MEDS: levoFLOXACIN-Levaquin 500mg/D5 100 ML IV SCH (07:53)
[2022-03-16 08:04] LABS: ANISOCYTOSIS 2+; ELLIPTOCYTES 1+; PLATELET ESTIMATE NORMAL; TEAR DROP CELLS FEW
[2022-03-16] MEDS: morphine 2 MG/ML inj. syringe IV PRN ×2 (09:36→20:14)
[2022-03-16 11:00] VITALS: BP 157/94
[2022-03-16] MEDS ORDERED: hyDRALAzine 10mg tablet PO PRN (13:35)
[2022-03-16 15:00] VITALS: BP 159/80
[2022-03-16 18:00] VITALS: BP 164/87
--- NOTE | 2022-03-16 19:01 | NUR ---
Patient in room PCU 3026. I have received report from Loretta ZEPEDA and had the opportunity to ask questions and assume patient care.
[2022-03-16] MEDS: furosemide 20MG tablet PO SCH (20:13)
[2022-03-16 22:00] VITALS: BP 192/84
[2022-03-16] MEDS: normal saline 1000ml 1,000 ML IV SCH (22:10)
[2022-03-17] VITALS (9 sets, daily range): BP systolic 110–182; BP diastolic 70–92
[2022-03-17] MEDS: morphine 2 MG/ML inj. syringe IV PRN ×3 (01:31→17:21)
--- NOTE | 2022-03-17 06:11 | NUR ---
Problems reprioritized. Patient report given, questions answered & plan of care reviewed with Kenia ZEPEDA.
[2022-03-17] MEDS: atorvastatin 20mg tablet PO SCH (07:20)
[2022-03-17] MEDS: HYDROcodone/acetaminophen 5mg/325mg tablet PO PRN ×2 (07:21→19:39)
[2022-03-17] MEDS: losartan 50mg tablet PO SCH (07:21)
[2022-03-17] MEDS: pantoprazole 40mg Tablet.DR PO SCH (07:21)
[2022-03-17] MEDS: methylPREDNISolone sod succ 125mg/2ml vial IV SCH ×2 (07:21→19:39)
[2022-03-17] MEDS: furosemide 20MG tablet PO SCH ×2 (07:22→19:40)
[2022-03-17] MEDS: metoprolol tartrate 50mg tablet PO SCH ×2 (07:22→19:40)
[2022-03-17] MEDS: levetiracetam 250mg tablet PO SCH ×2 (07:22→19:40)
[2022-03-17] MEDS: docusate sod 100mg capsule PO SCH ×2 (07:22→19:41)
[2022-03-17 08:36] LABS: BASOPHILS % (AUTO) 0 % (0-1); EOSINOPHILS % (AUTO) 0.2 % (0-6); HEMATOCRIT 33.3 % (35.0-45.0); HEMOGLOBIN 11.1 g/dl (12.0-16.0); LYMPHOCYTES # (AUTO) 0.6 X10'3 (1.1-4.8); LYMPHOCYTES % (AUTO) 9.8 % (21-51); MEAN CORPUSCULAR HEMOGLOBIN 29.9 PG (27.0-31.0); MEAN CORPUSCULAR HGB CONC 33.4 g/dL (33.0-36.5); MEAN CORPUSCULAR VOLUME 89.7 FL (78-98); MEAN PLATELET VOLUME 7.8 FL (7.4-10.4); MONOCYTES # (AUTO) 0.6 X10'3 (0-0.9); NEUTROPHILS # (AUTO) 5.1 X10'3 (1.8-7.7); PLATELET COUNT 237 X10'3 (140-440); RED BLOOD COUNT 3.72 X10'6 (4.20-5.60); RED CELL DISTRIBUTION WIDTH 19.4 % (11.5-14.5); WHITE BLOOD COUNT 6.4 X10'3 (4.5-11.0)
[2022-03-17 08:48] LABS: ALANINE AMINOTRANSFERASE 24 U/L (12-78); ALBUMIN 3.6 G/DL (3.4-5.0); ALBUMIN/GLOBULIN RATIO 0.8 (1.1-1.5); ALKALINE PHOSPHATASE 107 IU/L (46-116); ANION GAP 8 (8-16); ASPARTATE AMINO TRANSFERASE 22 U/L (10-37); BILIRUBIN,TOTAL 1.1 MG/DL (0.1-1.0); BLOOD UREA NITROGEN 30 MG/DL (7-18); BUN/CREATININE RATIO 31.9 (6.6-38.0); CALCIUM 8.7 MG/DL (8.5-10.1); CHLORIDE 98 MMOL/L (99-107); CREATININE 0.94 MG/DL (0.40-0.90); GLUCOSE 116 MG/DL (70-104); SODIUM 141 MMOL/L (135-145); TOTAL CARBON DIOXIDE 34.8 MMOL/L (24-32); TOTAL PROTEIN 8.2 G/DL (6.4-8.2); eGFR 57 ML/MIN
[2022-03-17 08:50] LABS: POTASSIUM 2.8 MMOL/L (3.5-5.1)
--- NOTE | 2022-03-17 09:01 | NUR ---
PAGER ID: [phone] MESSAGE: Alina Quintanilla [id number] pt. has critical k 2.8. No potassium replacement ordered. Kenia [id number]
[2022-03-17] MEDS ORDERED: magnesium 2GM in 50ml NS 50 ML IV PRN (09:10)
[2022-03-17] MEDS ORDERED: magnesium 4gm in 100ml NS 100 ML IV PRN (09:10)
[2022-03-17] MEDS ORDERED: POTASSIUM BICARB 20meq eff tab 20 MEQ TABLET.EFF PO PRN (09:10)
[2022-03-17] MEDS ORDERED: potassium CL 10mEq/100ml bag 100 ML IV PRN (09:10)
[2022-03-17 09:14] LABS: PLATELET ESTIMATE NORMAL
[2022-03-17 09:15] LABS: ANISOCYTOSIS 2+; ELLIPTOCYTES 2+; POLYCHROMASIA 1+; SCHISTOCYTES FEW; TEAR DROP CELLS FEW
--- NOTE | 2022-03-17 09:29 | NUR ---
Initial: Pt admitted w/ acute respiratory failure, COPD and CHF exacerbations per EMR. Currently on Sodium Restricted/SB6 diet per MD/LOCK STITCH CHANNELER recs w/ avg intake 45% of meals not meeting needs. Pt could benefit from Ensure Enlive BID to assist w/ meeting needs. LBM 03/16 receiving routine colace. Will continue to monitor. Recs: 1. Liberalize to Regular/SB6 diet 2. Ensure Enlive BIDBD: pending MD verification 3. Bowel care per rx 4. Weekly wts Addendum: 03/17/22 at [address] Amended: Links added.
[2022-03-17 09:38] LABS: MAGNESIUM 2.1 MG/DL (1.5-2.4)
[2022-03-17] MEDS: POTASSIUM BICARB 20meq eff tab 20 MEQ TABLET.EFF PO PRN ×3 (10:11→21:37)
[2022-03-17] MEDS: LORazepam 0.5 MG tablet PO PRN ×2 (12:18→19:39)
[2022-03-17] MEDS ORDERED: hyDRALAzine 10mg tablet JT PRN (12:40)
[2022-03-17] MEDS ORDERED: hydrALAZINE 20mg/ml inj. IV PRN (12:40)
--- NOTE | 2022-03-17 18:20 | NUR ---
Patient in room PCU 3026R. I have received report from KATELYN Aquino and had the opportunity to ask questions and assume patient care.
--- NOTE | 2022-03-17 18:48 | NUR ---
Gave report to Carol ZEPEDA.
[2022-03-17] MEDS: lactose-reduced food (Ensure Enlive) - 237ml bottle PO SCH (18:55)
[2022-03-17] MEDS: K and/or MAG REPLACEMENT MC SCH (20:00)
[2022-03-17] MEDS ORDERED: polyethylene glycol 3350 17gm powd pack PO SCH (21:00)
[2022-03-17] MEDS: temazepam 15mg capsule PO PRN (21:37)
[2022-03-18] MEDS: HYDROcodone/acetaminophen 5mg/325mg tablet PO PRN ×3 (00:27→15:43)
[2022-03-18] MEDS: morphine 2 MG/ML inj. syringe IV PRN ×2 (03:39→07:53)
[2022-03-18] MEDS: LORazepam 0.5 MG tablet PO PRN ×2 (03:39→10:54)
--- NOTE | 2022-03-18 06:16 | NUR ---
Problems reprioritized. Patient report given, questions answered & plan of care reviewed with KATELYN Aquino.
[2022-03-18 06:36] LABS: BASOPHILS % (AUTO) 0.1 % (0-1); EOSINOPHILS % (AUTO) 0.2 % (0-6); HEMATOCRIT 32.8 % (35.0-45.0); LYMPHOCYTES # (AUTO) 0.6 X10'3 (1.1-4.8); LYMPHOCYTES % (AUTO) 8.2 % (21-51); MEAN CORPUSCULAR HEMOGLOBIN 30.7 PG (27.0-31.0); MEAN CORPUSCULAR HGB CONC 33.5 g/dL (33.0-36.5); MEAN CORPUSCULAR VOLUME 91.8 FL (78-98); MEAN PLATELET VOLUME 8.5 FL (7.4-10.4); MONOCYTES # (AUTO) 0.7 X10'3 (0-0.9); MONOCYTES % (AUTO) 9.6 % (2-12); NEUTROPHILS # (AUTO) 5.8 X10'3 (1.8-7.7); NEUTROPHILS % (AUTO) 81.9 % (42-75); PLATELET COUNT 180 X10'3 (140-440); RED BLOOD COUNT 3.58 X10'6 (4.20-5.60); RED CELL DISTRIBUTION WIDTH 19.9 % (11.5-14.5); WHITE BLOOD COUNT 7.1 X10'3 (4.5-11.0)
[2022-03-18 06:43] VITALS: BP 103/49
[2022-03-18 06:59] LABS: ALANINE AMINOTRANSFERASE 17 U/L (12-78); ALBUMIN 3.4 G/DL (3.4-5.0); ALBUMIN/GLOBULIN RATIO 0.8 (1.1-1.5); ALKALINE PHOSPHATASE 94 IU/L (46-116); ANION GAP 9 (8-16); ASPARTATE AMINO TRANSFERASE 21 U/L (10-37); BILIRUBIN,TOTAL 0.7 MG/DL (0.1-1.0); BLOOD UREA NITROGEN 35 MG/DL (7-18); BUN/CREATININE RATIO 29.7 (6.6-38.0); CALCIUM 8.3 MG/DL (8.5-10.1); CHLORIDE 98 MMOL/L (99-107); CREATININE 1.18 MG/DL (0.40-0.90); GLUCOSE 148 MG/DL (70-104); POTASSIUM 3.4 MMOL/L (3.5-5.1); SODIUM 141 MMOL/L (135-145); TOTAL CARBON DIOXIDE 33.6 MMOL/L (24-32); TOTAL PROTEIN 7.5 G/DL (6.4-8.2); eGFR 44 ML/MIN
[2022-03-18] MEDS: levetiracetam 250mg tablet PO SCH (07:48)
[2022-03-18] MEDS: docusate sod 100mg capsule PO SCH (07:48)
[2022-03-18] MEDS: metoprolol tartrate 50mg tablet PO SCH (07:48)
[2022-03-18] MEDS: pantoprazole 40mg Tablet.DR PO SCH (07:48)
[2022-03-18] MEDS: atorvastatin 20mg tablet PO SCH (07:48)
[2022-03-18] MEDS: methylPREDNISolone sod succ 125mg/2ml vial IV SCH (07:49)
[2022-03-18] MEDS: levoFLOXACIN-Levaquin 500mg/D5 100 ML IV SCH (07:49)
[2022-03-18] MEDS: K and/or MAG REPLACEMENT MC SCH (07:49)
[2022-03-18] MEDS: furosemide 20MG tablet PO SCH (07:50)
[2022-03-18] MEDS: lactose-reduced food (Ensure Enlive) - 237ml bottle PO SCH (07:53)
[2022-03-18 10:26] LABS: ANISOCYTOSIS 2+; ELLIPTOCYTES 1+; PLATELET ESTIMATE NORMAL
--- NOTE | 2022-03-18 10:26 | NUR ---
PAGER ID: [phone] MESSAGE: Alina Dwight 3026 Pt. restless and pulled out her PIV. Supposed to discharge soon? Ativan given already. OK to leave PIV out? Kenia [phone]
[2022-03-18 10:27] LABS: TEAR DROP CELLS FEW
[2022-03-18 10:52] VITALS: BP 155/72
[2022-03-18] MEDS: losartan 50mg tablet PO SCH (10:54)
[2022-03-18 11:00] VITALS: BP 152/73
--- NOTE | 2022-03-18 11:39 | NUR ---
O2 Sat at rest on room air:_91__% If below 89%: Recovery O2 Sat at rest on __97_LPM:_2__%:___% via nc____(mask/nasal cannula, etc..) No further documentation is necessary. If O2 Sat did not drop below 89% on room air,ambulate patient on room air. O2 Sat while ambulating on room air:_86__% Recovery O2 Sat while ambulating on __90_LPM:__2_% No further documentation is necessary. If patient does not drop below 89% while ambulating, he/she does not qualify for home O2.
[2022-03-18] MEDS ORDERED: LORazepam 2 mg/ml vial IV PRN (11:40)
[2022-03-18 15:00] VITALS: BP 165/78
[2022-03-18] MEDS: POTASSIUM BICARB 20meq eff tab 20 MEQ TABLET.EFF PO PRN (16:16)
--- NOTE | 2022-03-18 18:48 | NUR ---
pt. discharged w/o PIV and with home o2. Reviewed all discharge medications and paperwork with pt and family.
[2022-03-27] MEDS ORDERED: HYDR-3964 PO (15:30)
[2022-03-27] MEDS ORDERED: DABI150C PO (15:30)
== END 2022-03-18 18:10 | disposition home or self-care (01) | DRG 189 ==
LOC: ER 15:32 → ED HOLD 22:13 → EDBEDREQ 03-13 18:24 → PCU 3S 03-13 20:00
PROVIDERS: ADMIT Family Medicine; ATTEND Family Medicine
DX: J96.01 Acute respiratory failure with hypoxia (principal); I50.33 Acute on chronic diastolic (congestive) heart failure; N17.0 Acute kidney failure with tubular necrosis; I13.0 Hypertensive heart and chronic kidney disease with heart failure and stage 1 through stage 4 chronic kidney disease, or unspecified chronic kidney disease; K80.10 Calculus of gallbladder with chronic cholecystitis without obstruction; D68.9 Coagulation defect, unspecified; Z20.822 Contact with and (suspected) exposure to COVID-19; G40.909 Epilepsy, unspecified, not intractable, without status epilepticus; K44.9 Diaphragmatic hernia without obstruction or gangrene; K57.30 Diverticulosis of large intestine without perforation or abscess without bleeding; J43.9 Emphysema, unspecified; J20.9 Acute bronchitis, unspecified; Z66 Do not resuscitate; N18.9 Chronic kidney disease, unspecified; I48.91 Unspecified atrial fibrillation; D64.9 Anemia, unspecified; E04.1 Nontoxic single thyroid nodule; E86.1 Hypovolemia; G89.4 Chronic pain syndrome; Z79.01 Long term (current) use of anticoagulants; Z86.73 Personal history of transient ischemic attack (TIA), and cerebral infarction without residual deficits; Z88.5 Allergy status to narcotic agent; Z88.8 Allergy status to other drugs, medicaments and biological substances; Z79.899 Other long term (current) drug therapy
CPT/HCPCS: 36415; 71045; 71250; 74176; 76536; 80053; 80061; 80185; 81003; 83036; 83605; 83735; 83880; 84100; 84132; 84145; 84443; 84484; 85008; 85025; 85610; 85730; 87040; 87081; 87635; 92508; 92616; 93005; 93306; 93970; 94640; 94760; 97110; 97116; 97162; 97530; 99285; A6154; A6250; A6258; C1758; C9803; G0378; J0360; J1940; J1956; J2060; J2270; J2405; J2543; J2930; J3430; J3490; J7030; J7040

== ENCOUNTER 2022-04-12 08:30 | Emergency (ER) | payer MEDICARE ==
[~2022-04-12] VITALS: Ht 152.4 cm; Wt 170.0 kg
[~2022-04-12 08:30] MED LIST changes: +ACET-890 PO; +ATOR40TA72 PO; -CEPH-585 PO; +DABI150C PO; +FURO40TA4 PO; -GABA300C PO; +IPRA3AMP9 NEB; +LEVE500T PO; +LOSA100T57 PO; +METO50TA16 PO; +OMEP20CA16 PO; -PHEN100C4 PO; +POTA10TA PO; -WARF2.5T82 PO; -ZOF4I IV
--- NOTE | 2022-04-12 08:50 | NUR ---
Pt c/o generalized body pain. Pt has a 6cm x 6cm wound on sacral area with surounding redness. Left LE has multiple superficial open areas that are weeping serosanguinous fluid.
[2022-04-12 09:15] LABS: BASOPHILS % (AUTO) 0.3 % (0-1); EOSINOPHILS # (AUTO) 0.1 X10'3 (0-0.9); EOSINOPHILS % (AUTO) 1.5 % (0-6); HEMATOCRIT 24.8 % (35.0-45.0); HEMOGLOBIN 8.2 g/dl (12.0-16.0); LYMPHOCYTES # (AUTO) 0.5 X10'3 (1.1-4.8); LYMPHOCYTES % (AUTO) 6.3 % (21-51); MEAN CORPUSCULAR HEMOGLOBIN 29.4 PG (27.0-31.0); MEAN CORPUSCULAR HGB CONC 32.9 g/dL (33.0-36.5); MEAN CORPUSCULAR VOLUME 89.4 FL (78-98); MEAN PLATELET VOLUME 7.6 FL (7.4-10.4); MONOCYTES # (AUTO) 0.6 X10'3 (0-0.9); NEUTROPHILS # (AUTO) 6.7 X10'3 (1.8-7.7); NEUTROPHILS % (AUTO) 83.9 % (42-75); PLATELET COUNT 146 X10'3 (140-440); RED BLOOD COUNT 2.77 X10'6 (4.20-5.60); RED CELL DISTRIBUTION WIDTH 21.1 % (11.5-14.5)
[2022-04-12 09:35] LABS: ALANINE AMINOTRANSFERASE 18 U/L (12-78); ALBUMIN 2.4 G/DL (3.4-5.0); ALBUMIN/GLOBULIN RATIO 0.6 (1.1-1.5); ALKALINE PHOSPHATASE 83 IU/L (46-116); ANION GAP 6 (8-16); ASPARTATE AMINO TRANSFERASE 19 U/L (10-37); BILIRUBIN,TOTAL 0.6 MG/DL (0.1-1.0); BLOOD UREA NITROGEN 40 MG/DL (7-18); BUN/CREATININE RATIO 21.4 (6.6-38.0); CALCIUM 7.6 MG/DL (8.5-10.1); CHLORIDE 100 MMOL/L (99-107); CREATININE 1.87 MG/DL (0.40-0.90); GLUCOSE 111 MG/DL (70-104); POTASSIUM 4.5 MMOL/L (3.5-5.1); SODIUM 137 MMOL/L (135-145); TOTAL CARBON DIOXIDE 30.6 MMOL/L (24-32); TOTAL PROTEIN 6.1 G/DL (6.4-8.2); eGFR 26 ML/MIN
[2022-04-12] MEDS ORDERED: ondansetron/PF 4mg/2ml inj IV ONE (09:45)
[2022-04-12] MEDS ORDERED: morphine 4 MG/ML inj SYRINge IV ONE (09:45)
[2022-04-12 10:46] LABS: ANISOCYTOSIS 3+; ELLIPTOCYTES 1+; PLATELET ESTIMATE NORMAL
[2022-04-12 10:47] LABS: BURR CELLS FEW; POIKILOCYTOSIS 1+
[2022-04-12] MEDS ORDERED: SULF1TAB49 PO (12:19)
[2022-04-12] MEDS ORDERED: DOXY100C76 PO ×2 (12:28)
[2022-04-12 12:53] LABS: CLARITY,URINE SLIGHTLY CLOUDY (Clear); COLOR,URINE YELLOW (Yellow); GLUCOSE, URINE NEGATIVE (Neg); KETONES,URINE NEGATIVE (Neg); LEUKOCYTE ESTERASE ,URINE NEGATIVE (Neg); NITRITES, URINE NEGATIVE (Neg); OCCULT BLOOD,URINE NEGATIVE (Neg); PH,URINE 5.5 (4.8-8.0); PROTEIN,URINE NEGATIVE (Neg); UROBILINOGEN,URINE 0.2 E.U/dL (0.2-1.0)
[2022-04-12 12:58] LABS: UA COLLECTION TYPE STRAIGHT CATH
[2022-04-12 13:09] LABS: BACTERIA,URINE 3+ /HPF (Neg); HYALINE CASTS 0-3 /LPF (NEGATIVE); SQUAMOUS EPITHELIAL CELL,UR FEW /LPF (FEW)
[2022-04-12 13:10] LABS: RBC,URINE 0-2 /HPF (0-2); WBC,URINE 0-4 /HPF (0-4)
--- NOTE | 2022-04-12 13:56 | NUR ---
Call to [facility] pharmacy per PA Oppezzo reques to cancel Bactrim.
--- NOTE | 2022-04-12 16:20 | NUR ---
Spoke with son Jerry, states he is on his way to picker tender patient.
[2022-04-12 18:37] VITALS: BP 109/60
[2022-04-12] MEDS ORDERED: DOXY100C43 PO ×2 (18:47)
[2022-04-14] MEDS ORDERED: WARF2.5T82 (17:00)
[2022-04-14] MEDS ORDERED: ACET-2 PO (17:01)
== END 2022-04-12 18:41 | disposition home or self-care (01) ==
LOC: ER 08:31
DX: S81.802A Unspecified open wound, left lower leg, initial encounter (principal); M79.605 Pain in left leg; M79.604 Pain in right leg; I73.9 Peripheral vascular disease, unspecified; I48.91 Unspecified atrial fibrillation; I12.9 Hypertensive chronic kidney disease with stage 1 through stage 4 chronic kidney disease, or unspecified chronic kidney disease; N18.9 Chronic kidney disease, unspecified; Z86.73 Personal history of transient ischemic attack (TIA), and cerebral infarction without residual deficits; Z79.899 Other long term (current) drug therapy; Z88.8 Allergy status to other drugs, medicaments and biological substances; Z88.1 Allergy status to other antibiotic agents; Z79.2 Long term (current) use of antibiotics; Z87.01 Personal history of pneumonia (recurrent); X58.XXXA Exposure to other specified factors, initial encounter; Y93.89 Activity, other specified; Y92.89 Other specified places as the place of occurrence of the external cause; Y99.8 Other external cause status
CPT/HCPCS: 36415; 71045; 80053; 81001; 83605; 84145; 85008; 85025; 85610; 87040; 93005; 93922; 93931; 96374; 96375; 99285; A6222; J2270; J2405; A4353; A6449

== ENCOUNTER 2022-07-29 20:35 | Inpatient (IN) | payer MEDICARE ==
[~2022-07-29] VITALS: Ht 157.5 cm; Wt 63.6 kg
[~2022-07-29 20:35] MED LIST changes: +ALBU17AE26 IH; +BUDE10.22 INH; -DABI150C PO; +FERR325T29 PO; +IPRA3AMP31 NEB; -IPRA3AMP9 NEB; +NYST15OI14 TP
[2022-07-29 21:38] LABS: BASOPHILS % (AUTO) 0.3 % (0-1); EOSINOPHILS # (AUTO) 0.2 X10'3 (0-0.9); EOSINOPHILS % (AUTO) 3.1 % (0-6); HEMATOCRIT 31.7 % (35.0-45.0); HEMOGLOBIN 10.5 g/dl (12.0-16.0); LYMPHOCYTES # (AUTO) 0.5 X10'3 (1.1-4.8); MEAN CORPUSCULAR HEMOGLOBIN 32.3 PG (27.0-31.0); MONOCYTES # (AUTO) 0.4 X10'3 (0-0.9); MONOCYTES % (AUTO) 5.3 % (2-12); NEUTROPHILS # (AUTO) 6.5 X10'3 (1.8-7.7); NEUTROPHILS % (AUTO) 84.3 % (42-75); PLATELET COUNT 234 X10'3 (140-440); RED BLOOD COUNT 3.23 X10'6 (4.20-5.60); RED CELL DISTRIBUTION WIDTH 15.8 % (11.5-14.5); WHITE BLOOD COUNT 7.8 X10'3 (4.5-11.0)
[2022-07-29 21:47] LABS: APTT 29 SECONDS (22-32)
[2022-07-29 21:48] LABS: ALANINE AMINOTRANSFERASE 14 U/L (12-78); ALBUMIN 3.3 G/DL (3.4-5.0); ALBUMIN/GLOBULIN RATIO 0.8 (1.1-1.5); ALKALINE PHOSPHATASE 121 IU/L (46-116); ANION GAP 7 (8-16); ASPARTATE AMINO TRANSFERASE 27 U/L (10-37); BLOOD UREA NITROGEN 20 MG/DL (7-18); CALCIUM 8.9 MG/DL (8.5-10.1); CHLORIDE 104 MMOL/L (99-107); CREATININE 1.05 MG/DL (0.40-0.90); GLUCOSE 101 MG/DL (70-104); POTASSIUM 4.3 MMOL/L (3.5-5.1); SODIUM 144 MMOL/L (135-145); TOTAL CARBON DIOXIDE 32.8 MMOL/L (24-32); TOTAL PROTEIN 7.5 G/DL (6.4-8.2); eGFR 50 ML/MIN
[2022-07-29 21:56] LABS: MAGNESIUM 2.2 MG/DL (1.5-2.4)
[2022-07-29 23:01] LABS: CLARITY,URINE SLIGHTLY CLOUDY (Clear); COLOR,URINE YELLOW (Yellow); GLUCOSE, URINE NEGATIVE (Neg); KETONES,URINE NEGATIVE (Neg); LEUKOCYTE ESTERASE ,URINE TRACE (Neg); NITRITES, URINE NEGATIVE (Neg); OCCULT BLOOD,URINE NEGATIVE (Neg); PROTEIN,URINE NEGATIVE (Neg); UROBILINOGEN,URINE 0.2 E.U/dL (0.2-1.0)
[2022-07-29 23:03] LABS: UA COLLECTION TYPE STRAIGHT CATH
[2022-07-29 23:08] LABS: RBC,URINE 0-2 /HPF (0-2)
[2022-07-29 23:09] LABS: BACTERIA,URINE 4+ /HPF (Neg); SQUAMOUS EPITHELIAL CELL,UR FEW /LPF (FEW)
--- NOTE | 2022-07-29 23:26 | NUR ---
SPOKE TO PT DAUGHTER (ELEAZAR) VIA PHONE AND PROVIDED UPDATE ON PT
[2022-07-30] MEDS ORDERED: vancomycin/NS 1 GM ADD-VANTAGE 250 ML IV ONE (00:50)
[2022-07-30] MEDS ORDERED: nitroGLYCERIN 0.2mg/hour patch TD ONE (00:50)
[2022-07-30] MEDS ORDERED: furosemide 10 MG/1 ML 10ml inj IV ONE (00:50)
[2022-07-30] MEDS ORDERED: aspirin 81mg tab.chew PO ONE (00:50)
--- NOTE | 2022-07-30 00:54 | NUR ---
SPOKE WITH DAUGHTER IN LAW (ELEAZAR) AND GAVE AN UPDATE.
[2022-07-30] MEDS ORDERED: diphenhydrAMINE 25mg capsule PO PRN (01:20)
[2022-07-30] MEDS ORDERED: mag hydrox/Alum hydrox/simeth 30ml oral suspension PO PRN (01:20)
[2022-07-30] MEDS ORDERED: ondansetron/PF 4mg/2ml inj IV PRN (01:20)
[2022-07-30] MEDS ORDERED: magnesium hydroxide 30ml (MOM) UD suspension PO PRN (01:20)
[2022-07-30] MEDS ORDERED: ipratropium/albuterol 3ml nebule NEB PRN (01:20)
[2022-07-30] MEDS ORDERED: acetaminophen 650mg rectal suppository RC PRN (01:20)
[2022-07-30] MEDS ORDERED: morphine 2 MG/ML inj. syringe IV PRN (01:20)
[2022-07-30] MEDS ORDERED: diphenhydrAMINE 50 mg/ml inj IV PRN (01:20)
[2022-07-30] MEDS ORDERED: bisacodyl 10mg suppository rectal RC PRN (01:20)
[2022-07-30] MEDS ORDERED: HYDROmorphone inj. 0.5 MG/0.5 ML DISP.SYRIN IV PRN (01:20)
[2022-07-30] MEDS ORDERED: ondansetron 4mg rapidly disintigrating tab PO PRN (01:20)
[2022-07-30] MEDS ORDERED: acetaminophen 325mg tablet PO PRN ×3 (01:20→03:45)
[2022-07-30] MEDS ORDERED: HYDROcodone/acetaminophen 5mg/325mg tablet PO PRN ×2 (01:20→03:45)
[2022-07-30 02:00] LABS: PHOSPHORUS 4.5 MG/DL (2.3-4.5)
[2022-07-30 02:01] LABS: HEMOGLOBIN A1C 5.4 % (4.5-6.2)
[2022-07-30] MEDS ORDERED: albuterol 2.5 MG/3 ML nebule NEB PRN (03:45)
[2022-07-30] MEDS: docusate sod 100mg capsule PO SCH ×2 (08:25→19:39)
[2022-07-30] MEDS: levetiracetam 250mg tablet PO SCH ×2 (08:25→19:40)
[2022-07-30] MEDS: nitroGLYCERIN 0.2mg/hour patch TD SCH (08:26)
[2022-07-30] MEDS: aspirin 81mg, enteric-coated 1 TAB TABLET.DR PO SCH (08:27)
[2022-07-30] MEDS: ferrous sulfate 325mg tablet PO SCH ×2 (08:27→19:39)
[2022-07-30] MEDS: metoprolol tartrate 50mg tablet PO SCH ×2 (08:27→19:39)
[2022-07-30] MEDS: atorvastatin 20mg tablet PO SCH (08:28)
[2022-07-30] MEDS: heparin, porcine 5000 units/ml vial SQ SCH ×2 (08:29→19:39)
[2022-07-30] MEDS: methylPREDNISolone sod succ 125mg/2ml vial IV SCH ×2 (08:30→19:37)
[2022-07-30] MEDS: levoFLOXACIN-Levaquin 500mg/D5 100 ML IV SCH (08:32)
[2022-07-30] MEDS: furosemide 10 MG/1 ML 10ml inj IV SCH (08:32)
[2022-07-30] MEDS: morphine 2 MG/ML inj. syringe IV PRN ×2 (08:33→16:34)
[2022-07-30] MEDS: pantoprazole 40mg Tablet.DR PO SCH (08:35)
[2022-07-30] MEDS: budesonide 0.5mg/2ml UD nebule IH SCH ×2 (08:37→20:22)
[2022-07-30] MEDS: ipratropium/albuterol 3ml nebule NEB SCH ×3 (08:37→20:21)
[2022-07-30] MEDS: losartan 50mg tablet PO SCH (09:00)
--- NOTE | 2022-07-30 15:03 | NUR ---
pt sleeping on bed. resp easy and unlabored. pt remains on monitor. VSS. Pt awaiting inpt bed. will continue to monitor.
[2022-07-30] MEDS ORDERED: RIVA15TA PO (15:37)
--- NOTE | 2022-07-30 19:00 | NUR ---
assisting Maribeth AUTOMATIC TIRE TESTER with pt care, pt is resting quietly on hospital bed, easily arouseable, GCS 15 alert and oriented, resp even and unlabored, skin p/w/d,
[2022-07-30] MEDS ORDERED: temazepam 15mg capsule PO PRN (21:00)
[2022-07-30] MEDS: nystatin 15 GM ointment TP SCH (21:00)
[2022-07-31] MEDS: ipratropium/albuterol 3ml nebule NEB SCH ×4 (02:43→20:58)
[2022-07-31] MEDS: HYDROcodone/acetaminophen 10/325mg tab PO PRN ×3 (06:57→23:00)
[2022-07-31 07:09] LABS: BASOPHILS % (AUTO) 0 % (0-1); EOSINOPHILS % (AUTO) 0 % (0-6); HEMATOCRIT 27.6 % (35.0-45.0); HEMOGLOBIN 9.4 g/dl (12.0-16.0); LYMPHOCYTES # (AUTO) 0.3 X10'3 (1.1-4.8); LYMPHOCYTES % (AUTO) 7.9 % (21-51); MEAN CORPUSCULAR HEMOGLOBIN 33.4 PG (27.0-31.0); MEAN CORPUSCULAR HGB CONC 33.9 g/dL (33.0-36.5); MEAN CORPUSCULAR VOLUME 98.6 FL (78-98); MEAN PLATELET VOLUME 8.4 FL (7.4-10.4); MONOCYTES # (AUTO) 0.2 X10'3 (0-0.9); MONOCYTES % (AUTO) 4.5 % (2-12); NEUTROPHILS # (AUTO) 3.2 X10'3 (1.8-7.7); NEUTROPHILS % (AUTO) 87.6 % (42-75); PLATELET COUNT 189 X10'3 (140-440); RED CELL DISTRIBUTION WIDTH 15.7 % (11.5-14.5); WHITE BLOOD COUNT 3.6 X10'3 (4.5-11.0)
[2022-07-31 07:29] LABS: ALANINE AMINOTRANSFERASE 12 U/L (12-78); ALBUMIN 2.7 G/DL (3.4-5.0); ALBUMIN/GLOBULIN RATIO 0.7 (1.1-1.5); ALKALINE PHOSPHATASE 97 IU/L (46-116); ANION GAP 8 (8-16); ASPARTATE AMINO TRANSFERASE 20 U/L (10-37); BILIRUBIN,TOTAL 0.5 MG/DL (0.1-1.0); BLOOD UREA NITROGEN 30 MG/DL (7-18); BUN/CREATININE RATIO 22.6 (6.6-38.0); CALCIUM 8.3 MG/DL (8.5-10.1); CHLORIDE 103 MMOL/L (99-107); CHOL/HDL RATIO 2.6 (0.00-4.99); CHOLESTEROL 81 MG/DL (0-200); CREATININE 1.33 MG/DL (0.40-0.90); GLUCOSE 170 MG/DL (70-104); HDL CHOLESTEROL 31 MG/DL (35-60); LDL CHOLESTEROL 47 MG/DL (50-100); SODIUM 143 MMOL/L (135-145); TOTAL PROTEIN 6.6 G/DL (6.4-8.2); TRIGLYCERIDES 55 MG/DL (20-135); eGFR 38 ML/MIN
[2022-07-31] MEDS: nitroGLYCERIN 0.2mg/hour patch TD SCH ×2 (08:00→08:30)
[2022-07-31] MEDS: budesonide 0.5mg/2ml UD nebule IH SCH ×2 (08:07→20:58)
[2022-07-31] MEDS: pantoprazole 40mg Tablet.DR PO SCH (08:27)
[2022-07-31] MEDS: aspirin 81mg, enteric-coated 1 TAB TABLET.DR PO SCH (08:27)
[2022-07-31] MEDS: levetiracetam 250mg tablet PO SCH ×2 (08:28→21:46)
[2022-07-31] MEDS: ferrous sulfate 325mg tablet PO SCH ×2 (08:28→21:46)
[2022-07-31] MEDS: potassium chloride 10mEq ER tablet PO SCH (08:29)
[2022-07-31] MEDS: metoprolol tartrate 50mg tablet PO SCH ×2 (08:29→21:45)
[2022-07-31] MEDS: docusate sod 100mg capsule PO SCH ×2 (08:29→21:47)
[2022-07-31] MEDS: atorvastatin 20mg tablet PO SCH (08:29)
[2022-07-31] MEDS: furosemide 10 MG/1 ML 10ml inj IV SCH (08:45)
[2022-07-31] MEDS: methylPREDNISolone sod succ 125mg/2ml vial IV SCH ×2 (08:50→21:47)
[2022-07-31] MEDS: levoFLOXACIN-Levaquin 500mg/D5 100 ML IV SCH (09:14)
--- NOTE | 2022-07-31 09:33 | NUR ---
Pt had scheduled placement of NTG patch. This RN found that previous nitro patch had not been removed so 0800 NTG patch held.
[2022-07-31] MEDS: losartan 50mg tablet PO SCH (10:20)
[2022-07-31] MEDS: nystatin 15 GM ointment TP SCH ×3 (11:32→21:00)
--- NOTE | 2022-07-31 13:51 | NUR ---
SPOKE WITH SON LEXIE, PROVIDED UPDATE. LEXIE EN ROUTE TO [facility].
--- NOTE | 2022-07-31 14:36 | NUR ---
PTS SON AT BEDSIDE
[2022-07-31] MEDS: morphine 2 MG/ML inj. syringe IV PRN (17:20)
[2022-07-31] MEDS: rivaroxaban 15mg tablet PO SCH (18:53)
[2022-07-31 19:30] VITALS: BP 137/63
--- NOTE | 2022-07-31 19:30 | NUR ---
PATIENT ADMITTED TO ROOM 360B FROM ER FOR COPD, CHF AND BILATERAL LEG WEEPING EDEMA AND WOUNDS. PLACED COMFORTABLE IN BED. VITAL SIGNS TAKEN AND RECORDED
[2022-07-31 22:00] VITALS: BP 127/57
[2022-08-01] MEDS: ipratropium/albuterol 3ml nebule NEB SCH ×4 (03:11→19:43)
[2022-08-01] MEDS: HYDROcodone/acetaminophen 10/325mg tab PO PRN ×2 (05:36→20:00)
[2022-08-01 06:00] VITALS: BP 129/58
--- NOTE | 2022-08-01 06:30 | NUR ---
Problems reprioritized. Patient report given, questions answered & plan of care reviewed with CASSIDY ZEPEDA.
[2022-08-01] MEDS: budesonide 0.5mg/2ml UD nebule IH SCH ×2 (07:25→19:43)
[2022-08-01 07:40] LABS: BASOPHILS % (AUTO) 0 % (0-1); EOSINOPHILS % (AUTO) 0 % (0-6); HEMATOCRIT 28.9 % (35.0-45.0); HEMOGLOBIN 9.6 g/dl (12.0-16.0); LYMPHOCYTES # (AUTO) 0.2 X10'3 (1.1-4.8); LYMPHOCYTES % (AUTO) 4.9 % (21-51); MEAN CORPUSCULAR HEMOGLOBIN 33.5 PG (27.0-31.0); MEAN CORPUSCULAR HGB CONC 33.4 g/dL (33.0-36.5); MEAN CORPUSCULAR VOLUME 100.3 FL (78-98); MEAN PLATELET VOLUME 8.2 FL (7.4-10.4); MONOCYTES # (AUTO) 0.1 X10'3 (0-0.9); MONOCYTES % (AUTO) 3.1 % (2-12); NEUTROPHILS # (AUTO) 4.1 X10'3 (1.8-7.7); PLATELET COUNT 189 X10'3 (140-440); RED BLOOD COUNT 2.88 X10'6 (4.20-5.60); RED CELL DISTRIBUTION WIDTH 15.7 % (11.5-14.5); WHITE BLOOD COUNT 4.5 X10'3 (4.5-11.0)
[2022-08-01 07:47] LABS: ALANINE AMINOTRANSFERASE 14 U/L (12-78); ALBUMIN 2.9 G/DL (3.4-5.0); ALBUMIN/GLOBULIN RATIO 0.8 (1.1-1.5); ALKALINE PHOSPHATASE 89 IU/L (46-116); ANION GAP 7 (8-16); ASPARTATE AMINO TRANSFERASE 18 U/L (10-37); BILIRUBIN,TOTAL 0.4 MG/DL (0.1-1.0); BLOOD UREA NITROGEN 39 MG/DL (7-18); BUN/CREATININE RATIO 28.5 (6.6-38.0); CALCIUM 8.2 MG/DL (8.5-10.1); CHLORIDE 102 MMOL/L (99-107); CREATININE 1.37 MG/DL (0.40-0.90); GLUCOSE 173 MG/DL (70-104); POTASSIUM 4.1 MMOL/L (3.5-5.1); SODIUM 141 MMOL/L (135-145); TOTAL CARBON DIOXIDE 31.8 MMOL/L (24-32); TOTAL PROTEIN 6.7 G/DL (6.4-8.2); eGFR 37 ML/MIN
[2022-08-01] MEDS: nystatin 15 GM ointment TP SCH ×3 (08:00→21:00)
[2022-08-01] MEDS: furosemide 10 MG/1 ML 10ml inj IV SCH (08:18)
[2022-08-01] MEDS: methylPREDNISolone sod succ 125mg/2ml vial IV SCH ×2 (08:19→19:54)
[2022-08-01] MEDS: atorvastatin 20mg tablet PO SCH (08:19)
[2022-08-01] MEDS: docusate sod 100mg capsule PO SCH ×2 (08:19→19:57)
[2022-08-01] MEDS: aspirin 81mg, enteric-coated 1 TAB TABLET.DR PO SCH (08:19)
[2022-08-01] MEDS: ferrous sulfate 325mg tablet PO SCH ×2 (08:19→20:00)
[2022-08-01] MEDS: metoprolol tartrate 50mg tablet PO SCH ×2 (08:20→19:59)
[2022-08-01] MEDS: levetiracetam 250mg tablet PO SCH ×2 (08:20→20:01)
[2022-08-01] MEDS: pantoprazole 40mg Tablet.DR PO SCH (08:20)
[2022-08-01] MEDS: losartan 50mg tablet PO SCH (08:20)
[2022-08-01] MEDS: levoFLOXACIN-Levaquin 500mg/D5 100 ML IV SCH (08:20)
[2022-08-01] MEDS: potassium chloride 10mEq ER tablet PO SCH (08:28)
[2022-08-01] MEDS: nitroGLYCERIN 0.2mg/hour patch TD SCH (08:42)
[2022-08-01 10:00] VITALS: BP 97/76
[2022-08-01 14:14] VITALS: BP 136/58
[2022-08-01] MEDS: rivaroxaban 15mg tablet PO SCH (17:21)
[2022-08-01 18:00] VITALS: BP 130/72
--- NOTE | 2022-08-01 18:30 | NUR ---
Patient in room [facility] 355. I have received report from CASSIDY ZEPEDA and had the opportunity to ask questions and assume patient care.
[2022-08-01 22:00] VITALS: BP 125/77
[2022-08-02] MEDS: HYDROcodone/acetaminophen 10/325mg tab PO PRN ×3 (00:07→13:52)
[2022-08-02] MEDS: ipratropium/albuterol 3ml nebule NEB SCH ×2 (02:36→07:34)
--- NOTE | 2022-08-02 06:30 | NUR ---
Problems reprioritized. Patient report given, questions answered & plan of care reviewed with CHELSEA ZEPEDA.
[2022-08-02] MEDS: budesonide 0.5mg/2ml UD nebule IH SCH (07:34)
[2022-08-02] MEDS: nystatin 15 GM ointment TP SCH ×2 (08:00→13:00)
[2022-08-02] MEDS: furosemide 10 MG/1 ML 10ml inj IV SCH (08:08)
[2022-08-02] MEDS: levoFLOXACIN-Levaquin 500mg/D5 100 ML IV SCH (08:08)
[2022-08-02] MEDS: methylPREDNISolone sod succ 125mg/2ml vial IV SCH (08:09)
[2022-08-02 08:15] LABS: BASOPHILS % (AUTO) 0 % (0-1); EOSINOPHILS % (AUTO) 0 % (0-6); HEMATOCRIT 28.7 % (35.0-45.0); HEMOGLOBIN 9.6 g/dl (12.0-16.0); LYMPHOCYTES # (AUTO) 0.2 X10'3 (1.1-4.8); LYMPHOCYTES % (AUTO) 4.3 % (21-51); MEAN CORPUSCULAR HGB CONC 33.6 g/dL (33.0-36.5); MEAN CORPUSCULAR VOLUME 98.4 FL (78-98); MEAN PLATELET VOLUME 8.4 FL (7.4-10.4); MONOCYTES # (AUTO) 0.3 X10'3 (0-0.9); MONOCYTES % (AUTO) 6.7 % (2-12); NEUTROPHILS # (AUTO) 4.6 X10'3 (1.8-7.7); PLATELET COUNT 197 X10'3 (140-440); RED BLOOD COUNT 2.91 X10'6 (4.20-5.60); RED CELL DISTRIBUTION WIDTH 15.3 % (11.5-14.5); WHITE BLOOD COUNT 5.1 X10'3 (4.5-11.0)
[2022-08-02] MEDS: potassium chloride 10mEq ER tablet PO SCH (08:23)
[2022-08-02 08:24] VITALS: BP_SYST 130
[2022-08-02] MEDS: levetiracetam 250mg tablet PO SCH (08:24)
[2022-08-02] MEDS: aspirin 81mg, enteric-coated 1 TAB TABLET.DR PO SCH (08:24)
[2022-08-02] MEDS: losartan 50mg tablet PO SCH (08:24)
[2022-08-02] MEDS: nitroGLYCERIN 0.2mg/hour patch TD SCH (08:24)
[2022-08-02] MEDS: metoprolol tartrate 50mg tablet PO SCH (08:24)
[2022-08-02] MEDS: pantoprazole 40mg Tablet.DR PO SCH (08:25)
[2022-08-02] MEDS: atorvastatin 20mg tablet PO SCH (08:25)
[2022-08-02] MEDS: ferrous sulfate 325mg tablet PO SCH (08:25)
[2022-08-02] MEDS: docusate sod 100mg capsule PO SCH (08:25)
[2022-08-02 08:26] LABS: ALANINE AMINOTRANSFERASE 14 U/L (12-78); ALBUMIN/GLOBULIN RATIO 0.8 (1.1-1.5); ALKALINE PHOSPHATASE 84 IU/L (46-116); ANION GAP 4 (8-16); ASPARTATE AMINO TRANSFERASE 19 U/L (10-37); BILIRUBIN,TOTAL 0.4 MG/DL (0.1-1.0); BLOOD UREA NITROGEN 42 MG/DL (7-18); CHLORIDE 102 MMOL/L (99-107); CREATININE 1.45 MG/DL (0.40-0.90); GLUCOSE 183 MG/DL (70-104); POTASSIUM 4.1 MMOL/L (3.5-5.1); SODIUM 140 MMOL/L (135-145); TOTAL CARBON DIOXIDE 34.4 MMOL/L (24-32); TOTAL PROTEIN 6.7 G/DL (6.4-8.2); eGFR 34 ML/MIN
--- NOTE | 2022-08-02 13:06 | NUR ---
HAY STACKER documentation: I have reviewed and agree with all interventions, assessments performed and documented by Lisa Elizabeth LVN.
--- NOTE | 2022-08-02 14:10 | NUR ---
Pt dc to home via private vehicle with son accompanying her. Pt IV dc with no complaints of pain or discomfort during procedure, canula intact. pt and son both verbalized understanding of all dc instructions including wound care information and all follow up information. Pt transported to private vehicle at 1410 by this nurse.
[2022-08-03] MEDS ORDERED: levoFLOXACIN-Levaquin 250mg/D5 50 ML IV SCH (08:00)
[2022-08-03] MEDS ORDERED: levoFLOXACIN 250mg tablet PO SCH (11:00)
== END 2022-08-02 14:09 | disposition home or self-care (01) | DRG 602 ==
LOC: ER 20:36 → ED HOLD 07-30 01:21 → SUR 3N 07-31 19:15
PROVIDERS: ADMIT Family Medicine; ATTEND Family Medicine
DX: L03.116 Cellulitis of left lower limb (principal); I21.A1 Myocardial infarction type 2; I50.33 Acute on chronic diastolic (congestive) heart failure; J44.1 Chronic obstructive pulmonary disease with (acute) exacerbation; I13.0 Hypertensive heart and chronic kidney disease with heart failure and stage 1 through stage 4 chronic kidney disease, or unspecified chronic kidney disease; N39.0 Urinary tract infection, site not specified; Z20.822 Contact with and (suspected) exposure to COVID-19; E78.5 Hyperlipidemia, unspecified; N18.9 Chronic kidney disease, unspecified; S80.922A Unspecified superficial injury of left lower leg, initial encounter; S80.921A Unspecified superficial injury of right lower leg, initial encounter; X58.XXXA Exposure to other specified factors, initial encounter; G40.909 Epilepsy, unspecified, not intractable, without status epilepticus; I27.20 Pulmonary hypertension, unspecified; I48.91 Unspecified atrial fibrillation; L30.9 Dermatitis, unspecified; R09.02 Hypoxemia; Z86.73 Personal history of transient ischemic attack (TIA), and cerebral infarction without residual deficits; Z88.5 Allergy status to narcotic agent; Z88.8 Allergy status to other drugs, medicaments and biological substances; Z79.899 Other long term (current) drug therapy; Y93.89 Activity, other specified; Y92.89 Other specified places as the place of occurrence of the external cause; Y99.8 Other external cause status
CPT/HCPCS: 36415; 71045; 80053; 80061; 81001; 83036; 83735; 83880; 84100; 84484; 85025; 85379; 85610; 85730; 87081; 87635; 93005; 94640; 94760; 97110; 97161; 97530; 99285; A4353; A6223; A6258; A6446; A6449; G0378; J1644; J1940; J1956; J2270; J2405; J2930; J3370; J7030; J7040